=== PATIENT | male | born 1940 | race Caucasian/White ===

== ENCOUNTER 2024-05-16 09:52 | Day surgery (SDC) | payer OTHER ==
[2024-05-16] VITALS (10 sets, daily range): BP systolic 94–127; BP diastolic 55–76; PULSE 57–70; RESP 14–16; TEMP 97.6; O2SAT 86–97
[~2024-05-16] VITALS: Ht 177.8 cm; Wt 73.6 kg
[2024-05-16] MEDS ORDERED: MIDAZolam 1mg/ml 10ml vial IV ONE (10:25)
[2024-05-16] MEDS ORDERED: normal saline 1000ml 1,000 ML IV SCH (10:25)
[2024-05-16] MEDS ORDERED: fentaNYL/PF 50MCG/1 ML 2ML syringe IV ONE (10:25)
[2024-05-16 10:40] LABS: BASOPHILS # (AUTO) 0.1 X10'3 (0-0.2); EOSINOPHILS % (AUTO) 0.1 % (0-6); HEMATOCRIT 36.1 % (42.0-52.0); HEMOGLOBIN 11.5 g/dl (14.0-17.9); LYMPHOCYTES # (AUTO) 1.6 X10'3 (1.1-4.8); LYMPHOCYTES % (AUTO) 16.7 % (21-51); MEAN CORPUSCULAR HEMOGLOBIN 24.1 PG (27.0-31.0); MEAN CORPUSCULAR HGB CONC 31.9 g/dL (33.0-36.5); MEAN CORPUSCULAR VOLUME 75.8 FL (78-98); MEAN PLATELET VOLUME 8.3 FL (7.4-10.4); MONOCYTES # (AUTO) 0.7 X10'3 (0-0.9); MONOCYTES % (AUTO) 7.6 % (2-12); NEUTROPHILS % (AUTO) 74.6 % (42-75); PLATELET COUNT 426 X10'3 (140-440); RED BLOOD COUNT 4.77 X10'6 (4.70-6.10); WHITE BLOOD COUNT 9.4 X10'3 (4.5-11.0)
[2024-05-16 10:49] LABS: ALBUMIN 2.7 G/DL (3.4-5.0); ANION GAP 10 (8-16); BLOOD UREA NITROGEN 26 MG/DL (7-18); BUN/CREATININE RATIO 24.3 (10.0-20.0); CALCIUM 7.4 MG/DL (8.5-10.1); CHLORIDE 109 MMOL/L (99-107); CREATININE 1.07 MG/DL (0.60-1.10); GLUCOSE 108 MG/DL (70-104); POTASSIUM 3.5 MMOL/L (3.5-5.1); SODIUM 143 MMOL/L (135-145); TOTAL CARBON DIOXIDE 23.6 MMOL/L (24-32); eCRCL 55 ML/MIN; eGFR 66 ML/MIN
[2024-05-16 10:53] LABS: APTT 35 SECONDS (22-32); INR 1.4 INR; PROTHROMBIN TIME 14.4 SECONDS (9.0-12.0)
[2024-05-16] MEDS ORDERED: SPIR25TA5 PO (11:16)
[2024-05-16] MEDS ORDERED: OMEP40CA21 PO (11:16)
[2024-05-16] MEDS ORDERED: METF-438 PO (11:16)
[2024-05-16] MEDS ORDERED: MUPI15CR12 TOP (11:16)
[2024-05-16] MEDS ORDERED: FURO40TA4 PO (11:16)
[2024-05-16] MEDS ORDERED: MULT-1085 PO (11:16)
[2024-05-16] MEDS ORDERED: APIX5TAB3 PO (11:16)
[2024-05-16] MEDS ORDERED: FAMO-49 PO (11:16)
[2024-05-16] MEDS ORDERED: EMPA10TA PO (11:16)
[2024-05-16] MEDS ORDERED: LORA10TA7 PO (11:16)
[2024-05-16] MEDS ORDERED: METO-411 PO (11:16)
[2024-05-16] MEDS ORDERED: FLUT16SP BOTHNARES (11:16)
[2024-05-16] MEDS ORDERED: TRAZ-251 PO (11:16)
[2024-05-16] MEDS ORDERED: MAGN400C PO (11:16)
[2024-05-16] MEDS ORDERED: MOME13HF12 INH (11:16)
[2024-05-16] MEDS ORDERED: VITD400T PO (11:16)
[2024-05-16] MEDS ORDERED: ATOR-2 PO (11:17)
[2024-05-16] MEDS ORDERED: AMIO200T27 PO (11:17)
[2024-05-16] MEDS ORDERED: ALBU18HF2 INH (11:17)
[2024-05-16 11:44] LABS: ANISOCYTOSIS 2+; ELLIPTOCYTES FEW; MICROCYTOSIS 1+; PLATELET ESTIMATE NORMAL
[2024-05-16 11:45] LABS: BURR CELLS FEW; HYPOCHROMASIA 1+
== END 2024-05-16 13:20 | disposition home or self-care (01) ==
LOC: SSTAY O 09:52
PROVIDERS: ATTEND Student in an Organized Health Care Education/Training Program
DX: I48.91 Unspecified atrial fibrillation (principal); I10 Essential (primary) hypertension; E11.9 Type 2 diabetes mellitus without complications; J44.9 Chronic obstructive pulmonary disease, unspecified; I42.9 Cardiomyopathy, unspecified; Z79.899 Other long term (current) drug therapy; Z88.0 Allergy status to penicillin
CPT/HCPCS: 80048; 82948; 85025; 85610; 85730; 92960; 93005; J7030; 85008; A4620